=== PATIENT | female | born 1995 | race African-American/Black ===

== ENCOUNTER 2017-10-09 22:37 | Emergency (ER) | payer OTHER ==
[~2017-10-09] VITALS: Ht 170.2 cm; Wt 62.1 kg
[~2017-10-09 22:37] MED LIST: AZITHROMYCIN250 MG ORAL; FOLIC ACID1 MG ORAL; KEPPRA500 MG ORAL
[2017-10-09 23:14] VITALS: BP 122/82
[2017-10-09] MEDS ORDERED: DOXYCYCLINE MO100 MG ORAL (23:54)
[2017-10-09] MEDS ORDERED: ANTI-ITCH28 G1 TP (23:54)
[2017-10-10] VITALS: BP 122/82
--- NOTE | 2017-10-10 06:54 | Emergency Room Report ---
History of Present Illness General Chief Complaint: Skin Rash/Abscess Present Illness HPI Patient is a 22-year-old female who presented after increased right hand rash. Patient gradual onset of symptoms. This reported having some itching to the right hand this had been present for one day. Patient states that she had recently been camping. She was noted to have some recent mosquito bite to the left upper extremity. She denied any fever. She denied recent tick bite. Allergies: Coded Allergies: NO KNOWN ALLERGIES (Unverified Allergy, Unknown, 10/15/15) Patient History Past Medical History: see triage record Last Menstrual Period: Sep Reviewed Nursing Documentation: PMH: Agreed, PSxH: Agreed Nursing Documentation-PMH Hx Seizures: Yes - Epilepsy Review of Systems All Other Systems: negative except mentioned in HPI Physical Exam Vital Signs Date Time Temp Pulse Resp B/P (MAP) Pulse Ox O2 Delivery O2 Flow Rate FiO2 10/09/17 22:46 98.2 73 16 118/79 100 Room Air General Appearance: well appearing, no apparent distress, alert, GCS 15, non- toxic Head: normocephalic, atraumatic ENT: hearing grossly normal, normal voice Neck: full range of motion, supple Respiratory: no respiratory distress, speaking full sentences Musculoskeletal: no calf tenderness Neurologic: normal inspection, alert, oriented x3, normal gait Psychiatric: mood/affect normal Skin: other - erythematous rash to dorsum of right hand with surrounding mild erythema Medical Decision Making Diagnostic Impression: Primary Impression: Insect bite ER Course Patient presented for skin rash. Differential diagnosis included was not limited to abscess, cellulitis, folliculitis, infected insect bite, Lyme disease among others. Patient's benign exam and does not appear to require any further imaging or laboratory testing at this time. Patient was given prescription for doxycycline. The patient is advised to use sunscreen and avoid excess sunlight She was given hydrocortisone cream. The patient is advised to follow up with primary care doctor in 1-2 days. Patient is advised to return if any worsening condition or if any changes in status that are concerning. Labs Test 10/09/17 23:30 Urine HCG, Qualitative Negative Last Vital Signs Date Time Temp Pulse Resp B/P (MAP) Pulse Ox O2 Delivery O2 Flow Rate FiO2 10/10/17 00:00 98.2 75 16 122/82 100 Room Air Status: improved Disposition: HOME, SELF-CARE Condition: Stable Scripts Hydrocortisone 2% Cream (ANTI-ITCH 2% CREAM) Y Cr 28 GM TP DAILY, #30 GM Prov: Enrike Porter 10/09/17 Doxycycline Monohydrate* (DOXYCYCLINE MONOHYDRATE*) 100 Mg Capsule 100 MG ORAL Q12H, #14 CAP 0 Refills Prov: Enrike Porter 10/09/17 Referrals: [facility]ERR[facility] (PCP) Patient Instructions: Enrike Keller Oct 10, 2017 06:54
== END 2017-10-10 | disposition home or self-care (01) ==
LOC: EMR 23:28
DX: S60.561A Insect bite (nonvenomous) of right hand, initial encounter (principal); W57.XXXA Bitten or stung by nonvenomous insect and other nonvenomous arthropods, initial encounter; Y92.89 Other specified places as the place of occurrence of the external cause; R21 Rash and other nonspecific skin eruption
CPT/HCPCS: 81025; 99283

== ENCOUNTER 2017-12-18 10:53 | Emergency (ER) | payer OTHER ==
[~2017-12-18] VITALS: Ht 170.2 cm; Wt 59.9 kg
[~2017-12-18 10:53] MED LIST changes: +ANTI-ITCH28 G1 TP; +DOXYCYCLINE MO100 MG ORAL
[2017-12-18] MEDS ORDERED: ALBUTEROL SULF8.5 GM INH (11:23)
--- NOTE | 2017-12-18 11:29 | Emergency Room Report ---
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 Allergies: Coded Allergies: NO KNOWN ALLERGIES (Unverified Allergy, Unknown, 10/15/15) Patient History Past Medical History: see triage record Past Surgical History: none Pertinent Family History: none Last Menstrual Period: 12/04/16 Now: No Reviewed Nursing Documentation: PMH: Agreed, PSxH: Agreed Nursing Documentation-PMH Past Medical History: No History, Except For Hx Seizures: Yes - Epilepsy Review of Systems All Other Systems: negative except mentioned in HPI Physical Exam Vital Signs Date Time Temp Pulse Resp B/P (MAP) Pulse Ox O2 Delivery O2 Flow Rate FiO2 12/18/17 11:04 98.6 73 19 114/79 99 Room Air Sp02 EP Interpretation: reviewed, normal General Appearance: well appearing, no apparent distress Head: normocephalic, atraumatic Eyes: bilateral eye PERRL, bilateral eye EOMI ENT: hearing grossly normal, normal pharynx, TMs + canals normal, uvula midline Neck: full range of motion, supple, no meningismus, no bony tend Respiratory: lungs clear, normal breath sounds, no rhonchi, no respiratory distress, no retraction, no accessory muscle use Cardiovascular #1: normal peripheral pulses, regular rate, rhythm, no edema, no gallop, no JVD, no murmur Gastrointestinal: normal bowel sounds, non tender, soft, no mass, no organomegaly, non-distended, no guarding, no hernia, no pulsatile mass, no rebound Musculoskeletal: normal inspection Neurologic: oriented x3, responsive, long term care social worker III-XII nml as tested, motor strength/ tone normal, sensory intact Psychiatric: mood/affect normal Skin: normal color, no rash, warm/dry, palpation normal Lymphatic: normal inspection, no adenopathy Medical Decision Making Diagnostic Impression: Primary Impression: Upper respiratory infection ER Course Multiple differentials considered including but not limited to Pneumonia Influenza PE Given the clinical exam and hemodynamics, patient is likely to have URI based on symptomatology and presentation Therefore no imaging studies have been obtained and the patient will have the initial outpatient conservative trial Last Vital Signs Date Time Temp Pulse Resp B/P (MAP) Pulse Ox O2 Delivery O2 Flow Rate FiO2 12/18/17 11:04 98.6 73 19 114/79 99 Room Air Status: unchanged Disposition: HOME, SELF-CARE Condition: Stable Scripts Albuterol Sulfate* (ALBUTEROL SULFATE MDI*) 8.5 Gm Hfa.aer.ad 2 PUFF INH Q4H Y for cough/wheezing, #1 EA 0 Refills Prov: BLESSING HERBERT D.O. 12/18/17 Patient Instructions: Upper Respiratory Infection, Adult Additional Instructions: Patient is provided with the discharge instructions notified to follow up with primary doctor in the next 2-3 days otherwise return to the er with any worsening symptoms. Please note that this report is being documented using [employer] technology. This can lead to erroneous entry secondary to incorrect interpretation by the dictating instrument. BLESSING HERBERT D.O. Dec 18, 2017 11:29
[2017-12-18 12:19] VITALS: BP 114/79
[2017-12-18 12:20] VITALS: BP 114/79
== END 2017-12-18 11:40 | disposition home or self-care (01) ==
LOC: EMR 11:15
DX: J06.9 Acute upper respiratory infection, unspecified (principal); G40.909 Epilepsy, unspecified, not intractable, without status epilepticus
CPT/HCPCS: 99283

== ENCOUNTER 2017-12-23 18:17 | Emergency (ER) | payer OTHER ==
[~2017-12-23] VITALS: Ht 170.2 cm; Wt 59.9 kg
[~2017-12-23 18:17] MED LIST changes: +ALBUTEROL SULF8.5 GM INH
[2017-12-23 19:10] VITALS: BP 113/74
--- NOTE | 2017-12-23 19:25 | Emergency Room Report ---
History of Present Illness General Chief Complaint: Sore Throat Source: Patient Present Illness HPI 22 presents to the ED c/o : sore throat 8/10 in severity, tonsillar swelling and fevers x 2 days. pt. reports she was seen for sore throat lesser degree last Sunday which resolved however her symptoms have returned patient describes that her symptoms are more severe than previous episode. Denies cough , rashes, recent travel or ill contacts. Denies neck pain, stiffness or photophobia. Denies CP, Palpitations, LOC, AMS, dizziness, Changes in Vision, Sensation, paresthesias, or a sudden severe headache. Allergies: Coded Allergies: NO KNOWN ALLERGIES (Unverified Allergy, Unknown, 10/15/15) Patient History Past Medical History: see triage record Past Surgical History: none Pertinent Family History: none Last Menstrual Period: 11/30/17 Now: No Immunizations: UTD Reviewed Nursing Documentation: PMH: Agreed, PSxH: Agreed Nursing Documentation-PMH Hx Seizures: Yes Review of Systems All Other Systems: negative except mentioned in HPI Physical Exam Vital Signs Date Time Temp Pulse Resp B/P (MAP) Pulse Ox O2 Delivery O2 Flow Rate FiO2 12/23/17 18:42 98.4 75 16 113/74 98 Room Air Sp02 EP Interpretation: reviewed, normal General Appearance: no apparent distress, alert, GCS 15, non-toxic Head: normocephalic, atraumatic Eyes: bilateral eye normal inspection, bilateral eye PERRL ENT: hearing grossly normal, normal voice, TMs + canals normal, uvula midline, moist mucus membranes, tonsillar swelling, pharyngeal erythema, tonsillar exudate Neck: full range of motion, no meningismus, no bony tend Respiratory: chest non-tender, lungs clear, normal breath sounds, speaking full sentences Cardiovascular #1: regular rate, rhythm Rectal: deferred Genitourinary: normal inspection Musculoskeletal: back normal, gait/station normal, normal range of motion, non- tender Neurologic: alert, oriented x3, responsive, motor strength/tone normal, sensory intact, speech normal, grossly normal Psychiatric: judgement/insight normal Skin: normal color, no rash, warm/dry, well hydrated Lymphatic: other - subparotid LAD bilateral. Medical Decision Making PA Attestation Dr. Ng is my supervising physician whom pt. management has been discussed with. Diagnostic Impression: Primary Impression: Pharyngitis Qualified Codes: J02.0 - Streptococcal pharyngitis ER Course 22 presents to the ED c/o : sore throat 8/10 in severity, tonsillar swelling and fevers x 2 days. pt. reports she was seen for sore throat lesser degree last Sunday which resolved however her symptoms have returned patient describes that her symptoms are more severe than previous episode. Denies cough , rashes, recent travel or ill contacts. Denies neck pain, stiffness or photophobia. Denies CP, Palpitations, LOC, AMS, dizziness, Changes in Vision, Sensation, paresthesias, or a sudden severe headache. Ddx considered but are not limited to: pharyngitis, strep, ART APPRAISER, ludwigs angina, URI Vital signs: are WNL, pt. is afebrile H&PE are most consistent with: pharyngitis presumed strep. ORDERS: None required at this time as the diagnosis is clinical ED INTERVENTIONS: none required at this time. DISCHARGE: At this time pt. is stable for d/c to home. Will provide printed patient care instructions, and any necessary prescriptions. Care plan and follow up instructions have been discussed with the patient prior to discharge. Last Vital Signs Date Time Temp Pulse Resp B/P (MAP) Pulse Ox O2 Delivery O2 Flow Rate FiO2 12/23/17 18:42 98.4 75 16 113/74 98 Room Air Disposition: HOME, SELF-CARE Condition: Stable Scripts Acetaminophen* (TYLENOL EXTRA STRENGTH*) 500 Mg Tablet 500 MG ORAL Q6H Y for Mild Pain/Temp > 100.5, #20 TAB 0 Refills Prov: Emma Miranda 12/23/17 Lidocaine HCl 2% Viscous (Lidocaine HCl 2% Viscous) 100 Ml Solution 15 ML ORAL QID, #100 ML Prov: Emma Miranda 12/23/17 Amoxicillin/Potassium Clav 875-125* (AUGMENTIN 875-125 TABLET*) 1 Each Tablet 1 TAB ORAL TWICE A DAY for 10 Days, #20 TAB Prov: Emma Miranda 12/23/17 Departure Forms: Return to Work Return to Work Date: Dec 26, 2017 Work Restrictions: None Return to Full Activity: Dec 26, 2017 Patient Instructions: Strep Throat Additional Instructions: Take medications as directed. Follow up with a Primary Care Provider in 3-5 days, even if your symptoms have resolved. --Please review list of primary care clinics, if you do not already have a primary care provider Return sooner to ED if new symptoms occur, or current symptoms become worse. - Please note that this Emergency Department Report was dictated using [employer] technology software, occasionally this can lead to erroneous entry secondary to interpretation by the dictation equipment. Emma Miranda Dec 23, 2017 19:25
[2017-12-23] MEDS ORDERED: LIDOCAINE VISC100 ML ORAL (19:26)
[2017-12-23] MEDS ORDERED: TYLENOL EXTRA500 MG ORAL (19:26)
[2017-12-23] MEDS ORDERED: AUGMENTIN 875-1 EAC1 ORAL (19:26)
[2017-12-23 19:32] VITALS: BP 113/74
== END 2017-12-23 19:32 | disposition home or self-care (01) ==
LOC: EMR 19:10
DX: J02.0 Streptococcal pharyngitis (principal)
CPT/HCPCS: 99283

== ENCOUNTER 2020-01-04 13:46 | Emergency (ER) | payer OTHER ==
[~2020-01-04] VITALS: Ht 170.2 cm; Wt 60.8 kg
[~2020-01-04 13:46] MED LIST changes: +AUGMENTIN 875-1 EAC1 ORAL; +LIDOCAINE VISC100 ML ORAL; +TYLENOL EXTRA500 MG ORAL
[2020-01-04 13:55] VITALS: BP 106/69
--- NOTE | 2020-01-04 14:30 | NUR ---
ED Nurse Note: Patient presents to ER due to sore throat, white patches on the throat for the past few days. Reports no fever or chills. Reports no cough, N/V or D. Patient able to speak without hoarsness. Regular, unlabored breathing noted. Patient able to swallow without any problem.
[2020-01-04] MEDS ORDERED: AMOXICILLIN500 MG ORAL (15:05)
--- NOTE | 2020-01-04 15:05 | Emergency Room Report ---
History of Present Illness General Chief Complaint: Sore Throat Source: Patient Present Illness HPI 24-year-old female presents to the emergency department complaining of tonsillar swelling edema and pus x2 days. Patient reports she has been taking Tylenol for pain and for subjective fevers and chills. 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 Patient reports some tenderness to the lymph nodes in her neck. Patient denies cough she denies headache, neck pain/stiffness or photophobia. Patient states she is up-to-date with vaccinations. No other aggravating or relieving factors at this time. Patient reports her pain is primarily managed with the Tylenol. Denies pain at this time. She denies changes in her voice. Allergies: Coded Allergies: NO KNOWN ALLERGIES (Unverified Allergy, Unknown, 10/15/15) Patient History Past Medical History: see triage record Past Surgical History: none Pertinent Family History: none Last Menstrual Period: 12/29/19 Now: No Immunizations: UTD Reviewed Nursing Documentation: PMH: Agreed; PSxH: Agreed Nursing Documentation-PMH Past Medical History: No History, Except For Hx Seizures: Yes Review of Systems All Other Systems: negative except mentioned in HPI Physical Exam Vital Signs Date Time Temp Pulse Resp B/P (MAP) Pulse Ox O2 Delivery O2 Flow Rate FiO2 01/04/20 13:55 98.1 16 106/69 98 Room Air 01/04/20 13:55 90 Sp02 EP Interpretation: reviewed, normal General Appearance: no apparent distress, alert, GCS 15, non-toxic Head: normocephalic, atraumatic Eyes: bilateral eye normal inspection, bilateral eye PERRL ENT: hearing grossly normal, normal voice, TMs + canals normal, uvula midline, moist mucus membranes, tonsillar swelling, pharyngeal erythema, tonsillar exudate Neck: full range of motion, no meningismus Respiratory: chest non-tender, lungs clear, normal breath sounds, no wheezing, speaking full sentences Cardiovascular #1: regular rate, rhythm Musculoskeletal: back normal, normal range of motion, gait/station normal, non- tender Neurologic: alert, motor strength/tone normal, oriented x3, sensory intact, responsive, speech normal Psychiatric: judgement/insight normal Skin: normal color, normal inspection Lymphatic: other - Sub-parotid lymphadenopathy bilaterally. Medical Decision Making PA Attestation Dr. Mendoza is my supervising Physician whom patient management has been discussed with. Diagnostic Impression: Primary Impression: Acute pharyngitis Qualified Codes: J02.0 - Streptococcal pharyngitis ER Course 24-year-old female presents to the emergency department complaining of tonsillar swelling edema and pus x2 days. Patient reports she has been taking Tylenol for pain and for subjective fevers and chills. 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 Patient reports some tenderness to the lymph nodes in her neck. Patient denies cough she denies headache, neck pain/stiffness or photophobia. Patient states she is up-to-date with vaccinations. No other aggravating or relieving factors at this time. Patient reports her pain is primarily managed with the Tylenol. Denies pain at this time. She denies changes in her voice. Ddx considered but are not limited to: pharyngitis, strep, PRINCIPLE SOFTWARE ENGINEER, ludwigs angina, URI Vital signs: are WNL, pt. is afebrile H&PE are most consistent with: pharyngitis presumed strep. ORDERS: None required at this time as the diagnosis is clinical ED INTERVENTIONS: none required at this time. DISCHARGE: At this time pt. is stable for d/c to home. Will provide printed patient care instructions, and any necessary prescriptions. Care plan and follow up instructions have been discussed with the patient prior to discharge. Last Vital Signs Date Time Temp Pulse Resp B/P (MAP) Pulse Ox O2 Delivery O2 Flow Rate FiO2 01/04/20 13:55 98.1 90 16 106/69 (81) 98 Room Air Disposition: HOME, SELF-CARE Condition: Stable Patient Instructions: Strep Throat Additional Instructions: Take medications as directed. Follow up with a Primary Care Provider in 3-5 days, even if your symptoms have resolved. Return sooner to ED if new symptoms occur, or current symptoms become worse. - Please note that this Emergency Department Report was dictated using Clicktreeroofing technician technology software, occasionally this can lead to erroneous entry secondary to interpretation by the dictation equipment. Emma Miranda Jan 04, 2020 15:05
--- NOTE | 2020-01-04 15:15 | NUR ---
ED Nurse Note: Patient is being discharged from medical care. D/C instruction given. Patient verbalized understanding of it. Patient ambulated out with steady gait with all her belongings.
== END 2020-01-04 15:15 | disposition home or self-care (01) ==
LOC: EMR 14:40
DX: J02.0 Streptococcal pharyngitis (principal); G40.909 Epilepsy, unspecified, not intractable, without status epilepticus
CPT/HCPCS: 99282